=== PATIENT | male | born 1995 | race Caucasian/White ===

== ENCOUNTER 2022-07-27 23:21 | Emergency (ER) | payer MEDICAID ==
[~2022-07-27] VITALS: Ht 182.9 cm; Wt 78.5 kg
[2022-07-28 00:13] LABS: HEMATOCRIT 40.4 % (36.7-47.1); MEAN CORPUSCULAR HEMOGLOBIN 30.4 uug (23.8-33.4); MEAN CORPUSCULAR VOLUME 85.9 fL (73.0-96.2); PLATELET COUNT (AUTO) 219 K/uL (152-348)
[2022-07-28 00:17] LABS: CREATININE 1.3 mg/dL (0.6-1.3); POTASSIUM 3.6 mmol/L (3.5-5.1)
[2022-07-28] MEDS ORDERED: ONDA4TAB5 PO (00:36)
--- NOTE | 2022-07-28 00:48 | NUR ---
Patient discharged to home in stable condition. Written and verbal after care instructions given. Patient verbalizes understanding of instructions. Stressed follow up or return to ER for worsening s/s. Patient is a/ox4, NAD noted. Patient is able to walk with steady gait
[2022-07-28 00:49] VITALS: BP 127/87
== END 2022-07-28 00:49 | disposition home or self-care (01) ==
LOC: ER 23:33
DX: I10 Essential (primary) hypertension (principal); R11.0 Nausea
CPT/HCPCS: 36415; 83735; 85025; A4663